=== PATIENT | male | born 1985 | race African-American/Black ===

== ENCOUNTER 2025-03-22 21:14 | Emergency (ER) | payer MEDICAID ==
[~2025-03-22] VITALS: Ht 182.9 cm; Wt 123.6 kg
--- NOTE | 2025-03-22 21:36 | ED.PDOC ---
HPI Comments 40-year-old male came to ER for chest pains. Patient has history of hypertension and dyslipidemia. States for the past month, he has been having intermittent episodes of left-sided neck pains. Few hours ago, patient woke up due sudden onset midsternal chest pains, pressure, intermittent, worsens with neck movements, 8/10 intensity, associated with palpitations and shortness breath. Chief Complaint: Chest pain Time Seen by MD: 21:34 Primary Care Provider: NONE Reviewed Notes: Nurses Notes Allergies: Coded Allergies: NO KNOWN ALLERGIES (Unverified , 11/10/15) Home Meds Active Scripts Cyclobenzaprine Hcl (Cyclobenzaprine Hcl) 10 Mg Tab, 10 MG PO QHSP PRN for 5 Days, #5 TAB Prov:PEREZ JIMÉNEZ MD 03/22/25 Naproxen (Naproxen) 375 Mg Tab, 1 TAB PO BIDPRN PRN for 5 Days, #10 TAB 5 Refills Prov:PEREZ JIMÉNEZ MD 03/22/25 Acetaminophen (Acetaminophen Er) 650 Mg Tab, 650 MG PO TIDPRN PRN for 3 Days, #9 TAB Prov:PEREZ JIMÉNEZ MD 03/22/25 Information Source: Patient Mode of Arrival: Ambulatory Severity: Moderate Timing: Hours Duration: Intermittent Location: Chest (L) Radiation: Neck Quality: Pressure Onset: At Rest Cardiac Risk Factors: Hyperlipidemia, HTN Associated Signs and Symptoms: SOB, Palpitations Review of Systems REVIEW OF SYSTEMS: No fever, no chills, or fatigue HEENT: No sore throat, no earache, no congestion, (+) neck pain. Cardiac: (+) chest pain. (+) palpitations. Lungs: No shortness of breath, no cough. GI: No nausea, no vomiting, no diarrhea, no constipation, no abdominal pain : No dysuria, frequency, or urgency. No hematuria. Musculoskeletal: No joint pain , no joint swelling, no extremity edema . Skin: No rash, no itching. Neuro: No headache, no dizziness, no weakness Vital Signs Vital Signs Date Time Temp Pulse Resp B/P (MAP) Pulse Ox O2 Delivery O2 Flow Rate FiO2 03/23/25 02:49 98.1 81 15 129/82 (98) 98 98.1 03/23/25 01:54 Room Air* 0 21 Physical Exam General: Awake, alert and oriented. No acute distress. Skin: Skin in warm, dry and intact. Appropriate color for ethnicity. Nailbeds pink with no cyanosis. HEENT: The head is normocephalic and atraumatic. Conjunctivae are clear without exudates or hemorrhage. Sclera is non-icteric. EOM are intact. No signs of nystagmus. Eyelids are normal in appearance without swelling or lesions. Oral mucosa is pink and moist Neck: The neck is supple with normal range of motion. No JVD. Left SCM tenderness Cardiac: Heart rate and rhythm are normal. No murmurs, gallops, or rubs are auscultated. No chest wall tenderness Respiratory: No signs of respiratory distress. Lung sounds are clear in all lobes bilaterally without rales, rhonchi, or wheezes. Abdominal: Abdomen is soft, non-tender without distention. Bowel sounds are present and normoactive in all four quadrants. Extremities: Upper and lower extremities are atraumatic in appearance without deformity or edema. Neurological: The patient is awake, alert and oriented to person, place, and time with normal speech. Speech is clear. There is no facial asymmetry. Psychiatric: Appropriate mood and affect. Good judgement and insight. Past Medical History PAST MEDICAL HISTORY: High Lipids, HTN Surgical History (Other): Eye surgery Family History Family History: Reviewed,noncontributory to illness EKG EKG : Pulse Rate (adult): 113 Cardiac Rhythm: ST Comments No STEMI Was a procedure done? Was a procedure done?: No CP Differential Dx Differential Diagnosis: Angina, Anxiety / Panic Attack, Hyperventilation, DC, Other Differential Diagnosis: CHF Differential Diagnosis: Angina, Chest Wall Pain, Costochondritis, Esophageal reflux/spasm, Gastritis, Myocardial Infarction, Pneumothorax, Other X-Ray, Labs, Meds, VS Vital Signs Date Time Temp Pulse Resp B/P (MAP) Pulse Ox O2 Delivery O2 Flow Rate FiO2 03/23/25 02:49 98.1 81 15 129/82 (98) 98 98.1 03/23/25 01:54 81 16 98 Room Air* 0 21 03/23/25 01:04 97.9 71 16 138/84 (102) 97 97.9 03/22/25 21:35 113 03/22/25 21:15 98.6 106 17 158/90 (112) 100 98.6 Lab Test 03/22/25 22:31 03/22/25 21:26 Range/Units Troponin I High Sensitivity 7 6 </=54 ng/L White Blood Count 4.7 4.4-10.8 10^3/uL Red Blood Count 4.67 4.5-5.90 10^6/uL Hemoglobin 14.5 13.5-17.5 g/dL Hematocrit 42.3 41.0-53.0 % Mean Corpuscular Volume 90.6 80.0-100.0 fL Mean Corpuscular Hemoglobin 31.2 28.0-32.0 pg Mean Corpuscular Hemoglobin Concent 34.4 32.0-36.0 g/dL Red Cell Distribution Width 13.2 11.8-14.3 % Platelet Count 214 140-450 10^3/uL Mean Platelet Volume 8.5 6.9-10.8 fL Neutrophils (%) (Auto) 47.1 37.0-80.0 % Lymphocytes (%) (Auto) 43.6 10.0-50.0 % Monocytes (%) (Auto) 5.0 0.0-12.0 % Eosinophils (%) (Auto) 2.3 0.0-7.0 % Basophils (%) (Auto) 2.0 0.0-2.0 % Neutrophils # (Auto) 2.2 1.6-8.6 10 ^3/uL Lymphocytes # (Auto) 2.1 0.4-5.4 10 ^3/uL Monocytes # (Auto) 0.2 0-1.3 10 ^3/uL Eosinophils # (Auto) 0.1 0-0.8 10 ^3/uL Basophils # (Auto) 0.1 0-0.2 10 ^3/uL Nucleated Red Blood Cells 0.2 % Sodium Level 143 136-145 mmol/L Potassium Level 3.3 L 3.5-5.1 mmol/L Chloride Level 105 98-107 mmol/L Carbon Dioxide Level 28 20-31 mmol/L Anion Gap 10 5-15 Blood Urea Nitrogen 12 9-23 mg/dL Creatinine 1.76 H 0.700-1.30 mg/dL Glomerular Filtration Rate Calc 50 >90 mL/min BUN/Creatinine Ratio 6.8 L 10.0-20.0 Serum Glucose 103 74-106 mg/dL Calcium Level 10.2 8.7-10.4 mg/dL Current Medications Medications (Trade) Dose Ordered Sig/Leslee Route Start Time Stop Time Status Last Admin Aspirin 324 mg ONCE ONCE PO 03/22/25 21:30 03/22/25 21:31 DC 03/23/25 02:16 Ketorolac Tromethamine (Toradol Injection) 60 mg ONCE ONCE IM 03/22/25 21:45 03/22/25 21:46 DC 03/23/25 02:16 Potassium Bicarbonate (Klor-Con/Ef) 50 meq ONCE ONCE PO 03/22/25 23:30 03/22/25 23:31 DC 03/23/25 02:18 Carotid Duplex Date: 03/22/2025 09:38 PM Clinical History: neck pain, chest pain, LEft bruit Comparison: None Technique: Duplex Doppler evaluation of the extracranial carotid and vertebral arteries including color Doppler and spectral/pulsed waveform analysis was performed. Findings: RIGHT SIDE: The peak systolic velocities are 70 cm/s in the distal CCA and 57 cm/s in the proximal ICA.The ICA/CCA ratio is less than 1. The external carotid artery is patent with peak systolic velocity of not vis ualized cm/s proximally. There is appropriate antegrade flow in the right vertebral artery. LEFT SIDE: The peak systolic velocities are 87 cm/s in the distal CCA and 68 cm/s in the proximal ICA.. The ICA/CCA ratio is less than 1. The external carotid artery is patent with peak systolic velocity of 105 cm/s proximally. There is appropriate antegrade flow in the left vertebral artery. IMPRESSION: 1. No hemodynamically significant stenosis noted in the right carotid system. 2. No hemodynamically significant stenosis noted in the left carotid system. Time of 1ST Reevaluation: 21:23 Reevaluation 1ST: Unchanged Patient Education/Counseling: Need For Follow Up Family Education/Counseling: No Family Present SEPSIS Sepsis Screen Physician Orders Electrocardigram (03/22/25 21:16) Electrocardigram (03/22/25 22:16) Electrocardigram (03/23/25 00:16) Chest Xray 1 View (03/22/25 21:20) Carotid Duplx W Color Dop (03/22/25 21:29) Vital Signs Date Time Temp Pulse Resp B/P (MAP) Pulse Ox O2 Delivery O2 Flow Rate FiO2 03/23/25 02:49 98.1 81 15 129/82 (98) 98 98.1 03/23/25 01:54 81 16 98 Room Air* 0 21 03/23/25 01:04 97.9 71 16 138/84 (102) 97 97.9 03/22/25 21:35 113 03/22/25 21:15 98.6 106 17 158/90 (112) 100 98.6 Laboratory Tests Test 03/22/25 21:26 White Blood Count 4.7 10^3/uL (4.4-10.8) Medications Medications Dose Ordered Sig/Leslee Route Start Time Stop Time Status Last Admin Dose Admin Aspirin 324 mg ONCE ONCE PO 03/22/25 21:30 03/22/25 21:31 DC 03/23/25 02:16 Ketorolac Tromethamine 60 mg ONCE ONCE IM 03/22/25 21:45 03/22/25 21:46 DC 03/23/25 02:16 Potassium Bicarbonate 50 meq ONCE ONCE PO 03/22/25 23:30 03/22/25 23:31 DC 03/23/25 02:18 Departure 1 Departure Time of Disposition: 23:25 Impression: Primary Impression: Chest pain Additional Impressions: Neck pain Hypokalemia Dehydration Disposition: HOME / SELF CARE / HOMELESS Condition: Stable Additional Instructions: ED DISCHARGE INSTRUCTIONS Instructions: Please read all instructions provided in this packet carefully. Blood work show that you may be dehydrated today. Please drink plenty of fluids at home. Follow up with the primary care provider to have your kidney function tests retested. Although you have been discharged from the Emergency Department, this does not mean that you have a "clean bill of health". No definitive diagnosis for your symptoms has been made today. It is possible that you are in the process of developing a serious illness. This is why you must return to the ED without fail if any new or worsening symptoms (especially if your symptoms include chest pain , trouble breathing, abdominal pain, fever, headache, confusion, trouble seeing, or trouble walking) It is also very important that you see a primary care doctor within the next 3-5 days to follow up. If you are unable to get an appointment, return to the ED for re-evaluation. CHEST PAIN EDUCATION There are many things that can cause chest pain. Some are not serious and will g et better on their own in a few days. But some kinds of chest pain need more testing and treatment. Your doctor may have recommended a follow-up visit in the next few days. If you are not getting better, you may need more tests or treatment. Even though your doctor has released you, you still need to watch for any problems. The doctor carefully checked you, but sometimes problems can develop later. If you have new symptoms or if your symptoms do not get better, get medical care right away. If you have worse or different chest pain or pressure that lasts more than 5 minutes or you passed out (lost consciousness), call 911 or seek other emergency help right away. A medical visit is only one step in your treatment. Even if you feel better, you still need to do what your doctor recommends, such as going to all suggested follow-up appointments and taking medicines exactly as directed. This will help you recover and help prevent future problems. How can you care for yourself at home? Rest until you feel better. Take your medicine exactly as prescribed. Call your doctor if you think you are having a problem with your medicine. Do not drive after taking a prescription pain medicine. When should you call for help? Call 911 if: You passed out (lost consciousness). You have severe difficulty breathing. You have symptoms of a heart attack. These may include: Chest pain or pressure, or a strange feeling in your chest. Sweating. Shortness of breath. Nausea or vomiting. Pain, pressure, or a strange feeling in your back, neck, jaw, or upper belly or in one or both shoulders or arms. Lightheadedness or sudden weakness. A fast or irregular heartbeat. After you call 911, the icer machine operator may tell you to chew 1 adult-strength or 2 to 4 low-dose aspirin. Wait for an ambulance. Do not try to drive yourself. Call your doctor now or seek immediate medical care if: You have any trouble breathing. You have new or different chest pain. You are dizzy or lightheaded, or you feel like you may faint. Watch closely for changes in your health, and be sure to contact your doctor if you do not get better as expected. Current as of: May 02, 2024 Author: DAR Alvarado Staff? Preventing Dehydration Dehydration is when the body dries out because of drinking too little fluid, losing too much fluid, or both. Normal fluid loss happens with breathing, urination, and sweating. Too much fluid can be lost through vomiting, diarrhea, or excessive sweating. Dehydration can occur quickly in older adults and may lead to serious health conditions. You may be dehydrated if you experience: dark colored urine frequent urination and only pass a small amount dry mouth or coated tongue constipation or small and hard stools dry skin frequent urinary tract infection headache confusion dizziness or lightheadedness after standing up fast heart rate dry eyes You may not have all of these symptoms at the same time, but all may be caused by not drinking enough fluids. What can I do to prevent dehydration? The best way to replace fluids is to drink enough daily. Many older people do not feel thirsty and are not aware of the need to drink. Men 13 cups/day (3.0L) Women 9 cups/day (2.7L) What should I drink? At least half of what you drink should be water. Good choices of fluid are: Water or calorie-free flavored water Fruit or vegetable juices Milk Decaffeinated or herbal teas Low sodium broth or soups Poor choices are: Canned soups, which can be a hidden source of salt Soft drinks and sports drinks high in sugar Caffeinated drinks such as coffee, tea, and hot chocolate Alcohol *Caffeinated and alcoholic drinks may cause fluid loss. *Alcoholic drinks should be limited to two drinks/day for men and one for women. 1 Drink = 12oz beer, 6oz wine, or 1oz liquor Simple ways to drink more: Use large, easy to hold cups Leave a glass of fluid at your bedside or sitting area Choose a variety of fluids based on what you like Drink fluids during and between meals Remind older adults to drink enough fluid daily e-Prescriptions Cyclobenzaprine Hcl (Cyclobenzaprine Hcl) 10 Mg Tab 10 MG PO QHSP PRN for 5 Days, #5 TAB Prov: PEREZ JIMÉNEZ MD 03/22/25 Naproxen (Naproxen) 375 Mg Tab 1 TAB PO BIDPRN PRN for 5 Days, #10 TAB 5 Refills Prov: PEREZ JIMÉNEZ MD 03/22/25 Acetaminophen (Acetaminophen Er) 650 Mg Tab 650 MG PO TIDPRN PRN for 3 Days, #9 TAB Prov: PEREZ JIMÉNEZ MD 03/22/25 Comments 40-year-old male with left-sided neck pain and chest pain. EKG negative for signs of ischemia. High sensitivity troponin negative. CXR shows no acute pr ocess. Ultrasound negative for carotid stenosis/aneurysm. Presentation not suggestive of acute coronary syndrome, pulmonary embolism or aortic dissection. Patient improved at time of discharge. No hypoxia, respiratory distress or dyspnea at discharge. Patient able to ambulate without difficulty. Patient felt stable for discharge home. Patient advised of importance of hydration at home Patient well-appearing, nontoxic. Advised prompt follow-up with PCP, return to the ED with any new, worsening or concerning symptoms. Extensive evaluation was performed in attempt to identify or rule out: (See differential diagnosis section) The following tests were ordered, and results were reviewed by me and discussed with patient: (See diagnostic results section) The following test were independently interpreted by me: EKG I reviewed and agreed with the following test results read by other providers: Chest x-ray I reviewed the following notes from the pt's past medical encounters: N/A Additional information was gathered from interviewing the following independent historians: N/A Discussion of management or test interpretation with external physician/other qualified health certified social workers in health care: N/A Decision regarding hospitalization or escalation of hospital level of care: Risks and benefits of admission for further treatment of patient's condition was considered however due to patient's stable condition patient will be discharged to follow up closely or return to care for worsening of condition or inability to follow up. Critical Care Note Critical Care Time?: No Stability Stability form required: No Heart Score Heart Score: Heart Score Response (Comments) Value History Moderate Suspicious 1 EKG Repolarization Disturb 1 Age <45 0 Risk Factors 1 or 2 risk factors 1 Troponin Normal limit 0 Total 3 I personally scribed for PEREZ JIMÉNEZ MD ([employer]) on 03/22/25 at 21:35. Electronically submitted by Tashi Goodman ([employer]). I personally scribed for PEREZ JIMÉNEZ MD ([employer]) on 03/22/25 at 22:30. Electronically submitted by Tashi Goodman ([employer]). PEREZ JIMÉNEZ MD Mar 22, 2025 21:35
[2025-03-22 21:40] LABS: Basophils # (auto) 0.1 10 ^3/uL (0-0.2); Eosinophils # (auto) 0.1 10 ^3/uL (0-0.8); Eosinophils % (auto) 2.3 % (0.0-7.0); Hematocrit 42.3 % (41.0-53.0); Hemoglobin 14.5 g/dL (13.5-17.5); Lymphocytes # (auto) 2.1 10 ^3/uL (0.4-5.4); Lymphocytes % (auto) 43.6 % (10.0-50.0); Mean Corpuscular Hemoglobin 31.2 pg (28.0-32.0); Mean Corpuscular Hgb Conc. 34.4 g/dL (32.0-36.0); Mean Corpuscular Volume 90.6 fL (80.0-100.0); Monocytes # (auto) 0.2 10 ^3/uL (0-1.3); Neutrophils # (auto) 2.2 10 ^3/uL (1.6-8.6); Neutrophils % (auto) 47.1 % (37.0-80.0); Nucleated Red Blood Cells % 0.2 %; Platelet Count (auto) 214 10^3/uL (140-450); Red Blood Cells 4.67 10^6/uL (4.5-5.90); Red Cell Distribution Width 13.2 % (11.8-14.3); White Blood Cell 4.7 10^3/uL (4.4-10.8)
[2025-03-22 21:45] LABS: Chloride 105 mmol/L (98-107)
[2025-03-22 21:46] LABS: Calcium 10.2 mg/dL (8.7-10.4); Carbon Dioxide 28 mmol/L (20-31)
[2025-03-22 21:51] LABS: BUN/Creatinine Ratio 6.8 (10.0-20.0); Blood Urea Nitrogen 12 mg/dL (9-23); Glucose 103 mg/dL (74-106); Potassium 3.3 mmol/L (3.5-5.1)
[2025-03-22 22:00] LABS: Anion Gap 10 (5-15); Sodium 143 mmol/L (136-145)
--- NOTE | 2025-03-22 22:17 | DVH ---
Carotid Duplex Date: 03/22/2025 09:38 PM Clinical History: neck pain, chest pain, LEft bruit Comparison: None Technique: Duplex Doppler evaluation of the extracranial carotid and vertebral arteries including col or Doppler and spectral/pulsed waveform analysis was performed. Findings: RIGHT SIDE: The peak systolic velocities are 70 cm/s in the distal CCA and 57 cm/s in the proximal ICA.The ICA/CC A ratio is less than 1. The external carotid artery is patent with peak systolic velocity of not visualized cm/s proximally. There is appropriate antegrade flow in the right vertebral artery. LEFT SIDE: The peak systolic velocities are 87 cm/s in the distal CCA and 68 cm/s in the proximal ICA.. The ICA/ CCA ratio is less than 1. The external carotid artery is patent with peak systolic velocity of 105 cm/s proximally. There is appropriate antegrade flow in the left vertebral artery. IMPRESSION: 1. No hemodynamically significant stenosis noted in the right carotid system. 2. No hemodynamically significant stenosis noted in the left carotid system. 3. Reference: Radiology 2003; 229:340-346 HS:Y
--- NOTE | 2025-03-22 22:39 | DVH ---
CHEST RADIOGRAPH Indication: Chest pain Technique: Single frontal view of the chest was obtained COMPARISON: None FINDINGS: Lines and Tubes: None Lungs: Clear Pleura: No effusion. No pneumothorax. Cardiomediastinal contours: Unremarkable Bones: Unremarkable IMPRESSION: 1. No acute disease.
[2025-03-22] MEDS ORDERED: NAPR-957 PO (23:27)
[2025-03-22] MEDS ORDERED: CYCL-839 PO (23:27)
[2025-03-22] MEDS ORDERED: ACET650T12 PO (23:27)
[2025-03-23 01:54] VITALS: PULSE 81; RESP 16; O2SAT 98
[2025-03-23] MEDS: KETOROLAC TROMETH 30 MG/ML 1ML VIAL IM ONE (02:16)
[2025-03-23] MEDS: SODIUM CHLORIDE 0.9% 1,000 ML IV ONE (02:16)
[2025-03-23] MEDS: ASPirin 81 mg TAB PO ONE (02:16)
[2025-03-23] MEDS: POTASSIUM EFFERVESENT TAB 25 MEQ PO ONE (02:18)
[2025-03-23 02:49] VITALS: BP 129/82; PULSE 81; RESP 15; TEMP 98.1; O2SAT 98
--- NOTE | 2025-03-25 12:27 | ECG ---
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
--- NOTE | 2025-03-26 14:42 | ECG ---
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
== END 2025-03-23 02:48 | disposition home or self-care (01) ==
LOC: ER 21:14
DX: E87.6 Hypokalemia (principal); R07.89 Other chest pain; M54.2 Cervicalgia; E86.0 Dehydration; E78.5 Hyperlipidemia, unspecified; I10 Essential (primary) hypertension; Z98.890 Other specified postprocedural states; Z79.899 Other long term (current) drug therapy
CPT/HCPCS: 36415; 71045; 80048; 84484; 85025; 93005; 93886; 96372; 99285; J1885

== ENCOUNTER 2025-05-04 11:19 | Emergency (ER) | payer MEDICAID ==
[~2025-05-04] VITALS: Ht 182.9 cm; Wt 120.6 kg
[~2025-05-04 11:19] MED LIST: ACET650T12 PO; CYCL-839 PO; NAPR-957 PO
--- NOTE | 2025-05-04 11:28 | ECG ---
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
--- NOTE | 2025-05-04 11:50 | ED.PDOC ---
History of Present Illness HPI Comments 40 y/o M presents with c/c left sided neck pain, that radiates to his left chest wall and left arm, with associated left finger numbness. Denies any further acute symptoms. No cardiac history. Chief Complaint: Upper Extremity Time Seen by MD: 11:20 Primary Care Provider: NONE Reviewed Notes: Nurses Notes, Medications, Allergies Allergies: Coded Allergies: NO KNOWN ALLERGIES (Unverified , 11/10/15) Home Meds Active Scripts Cyclobenzaprine Hcl (Cyclobenzaprine Hcl) 10 Mg Tab, 10 MG PO QHSP PRN for 5 Days, #5 TAB Prov:PEREZ JIMÉNEZ MD 03/22/25 Naproxen (Naproxen) 375 Mg Tab, 1 TAB PO BIDPRN PRN for 5 Days, #10 TAB 5 Refills Prov:PEREZ JIMÉNEZ MD 03/22/25 Acetaminophen (Acetaminophen Er) 650 Mg Tab, 650 MG PO TIDPRN PRN for 3 Days, #9 TAB Prov:PEREZ JIMÉNEZ MD 03/22/25 Information Source: Patient Mode of Arrival: Ambulatory Severity: Moderate Timing: Hours Duration: Since onset Prehospital treatment: None Past Medical History PAST MEDICAL HISTORY: High Lipids, HTN Family History Family History: Reviewed,noncontributory to illness Social History Smoker: Non-Smoker Alcohol: Denies ETOH Use Drugs: Denies Drug Use Lives In: Home All Other Systems: Reviewed and Negative (As per HPI) Physical Exam General Appearance: Mild Distress, Normal HEENT: Normal ENT Inspection, Pharynx Normal, TMs Normal Neck: Limited Range of Motion, Normal, Normal Inspection, Tender Lateral Respiratory: Chest Non-Tender, Lungs Clear, No Accessory Muscle Use, No Respiratory Distress, Normal Breath Sounds Cardiovascular: No Edema, No JVD, No Murmur, No Gallop, Normal Peripheral Pulses, Regular Rate/Rhythm Breast Exam: Deferred Gastrointestinal: No Organomegaly, Non Tender, No Pulsatile Mass, Normal Bowel Sounds, Soft Genitalia: Deferred Pelvic: Deferred Rectal: Deferred Extremities: No calf tenderness, Normal capillary refill, Normal inspection, N ormal range of motion, Non-tender, No pedal edema, Other (Left arm is tingling up to the fingers which are feel numb) Neurologic: Alert, drop man II-XII nml as Tested, No Motor Deficits, Normal Affect, Normal Mood, No Sensory Deficits Cerebellar Function: Normal Reflexes: Normal Skin: Dry, Normal Color, Warm Peripheral Pulses: 1+ carotid (R), 1+ carotid (L) Lymphatic: No Adenopathy Was a procedure done? Was a procedure done?: No EKG EKG : Pulse Rate (adult): 86 [place]: Normal Cardiac Rhythm: NSR Block: None Hypertrophy: None ST: Normal Differential Dx Considerations may include: Cervical radiculopathy sprain, musculoskeletal pain, dislocation, CO, angina, PE, among others X-Ray, Labs, Meds, VS Vital Signs Date Time Temp Pulse Resp B/P (MAP) Pulse Ox O2 Delivery O2 Flow Rate FiO2 05/04/25 11:50 86 05/04/25 11:48 74 18 96 Room Air 05/04/25 11:48 97.6 74 16 167/74 (105) 96 97.6 05/04/25 11:27 86 05/04/25 11:20 97.5 101 18 148/95 98 97.5 Current Medications Medications (Trade) Dose Ordered Sig/Leslee Route Start Time Stop Time Status Last Admin Ketorolac Tromethamine (Toradol Injection) 60 mg ONCE ONCE IM 05/04/25 11:45 05/04/25 11:46 DC 05/04/25 12:06 X-Ray, Labs, Meds, VS Comment Course in the emergency department eventful patient came in complaining of left arm tingling and neck pain The EKG shows normal nonspecific ST-T changes inferior and lateral leads The CT of the C-spine is normal Patient will be discharged home to follow up with his PCP Time of 1ST Reevaluation: 11:50 Reevaluation 1ST: Unchanged Patient Education/Counseling: Diagnosis, Treatment, Need For Follow Up Family Education/Counseling: No Family Present SEPSIS Sepsis Screen Date sepsis recognized/suspect: May 04, 2025 Time Sepsis recognized/suspect: 1119 Recent Procedure: No On Antibiotic Therapy: No Respiratory Rate >20: No Heart Rate >90: Yes Temp<36 C (96.8 F) or >38.3 C: No SBP <90 or MAP <65 mmHG: No New Acute Mental Status Change: No Is the patient on CPAP, BIPAP,: No Physician Orders Cervical Without Contrast (05/04/25 11:39) Vital Signs Date Time Temp Pulse Resp B/P (MAP) Pulse Ox O2 Delivery O2 Flow Rate FiO2 05/04/25 11:50 86 05/04/25 11:48 74 18 96 Room Air 05/04/25 11:48 97.6 74 16 167/74 (105) 96 97.6 05/04/25 11:27 86 05/04/25 11:20 97.5 101 18 148/95 98 97.5 Medications Medications Dose Ordered Sig/Leslee Route Start Time Stop Time Status Last Admin Dose Admin Ketorolac Tromethamine 60 mg ONCE ONCE IM 05/04/25 11:45 05/04/25 11:46 DC 05/04/25 12:06 Departure 1 Departure Time of Disposition: 14:01 Impression: Primary Impression: Left face and left arm tingling Additional Impression: Abnormal EKG Ruled Out: Radiculopathy Disposition: 01 HOME / SELF CARE / HOMELESS Condition: Fair Additional Instructions: Follow up with your PCP and also Cardiology e-Prescriptions Naproxen (Naproxen) 375 Mg Tab 375 MG PO TID for 10 Days, #30 TAB Prov: NAVYA ROSENBERG MD 05/04/25 Discharged With: Self Critical Care Note Critical Care Time?: No Stability Stability form required: No Heart Score Heart Score: Heart Score Response (Comments) Value History N/A 0 EKG Repolarization Disturb 1 Age <45 0 Risk Factors 1 or 2 risk factors 1 Troponin N/A 0 Total 2 I personally scribed for NAVYA ROSENBERG MD ([email or web address]) on 05/04/25 at 11:50. Electronically submitted by Rickey Whiting ([email or web address]). NAVYA ROSENBERG MD May 04, 2025 11:50
[2025-05-04] MEDS: KETOROLAC TROMETH 60MG/2ML VIAL IM ONE (12:06)
--- NOTE | 2025-05-04 12:46 | DVH ---
EXAM: CT CERVICAL WITHOUT CONTRAST INDICATION: Left arm radiculopathy with a stiff neck EXAM DATE: 05/04/2025 11:42 AM COMPARISON: US CAROTID DUPLX W COLOR DOP on DOS: 03/22/25 TECHNIQUE: Multiple axial CT images of the cervical spine were obtained using bone algorithm. Sagitta l and coronal reformatting was done. Bone and soft tissue windows were reviewed. Radiation Dose Information: CT Dose: CTDI volume is 27.07 mGy. Dose-length product is 1.78 mGy*cm FINDINGS: The cervical alignment is intact. Curvature is maintained. No acute cervical spine fracture is identi fied. The vertebral body heights are intact. No suspicious osseous lesions are identified. No significant degenerative changes are identified. No significant spinal or neural foraminal stenosi s. There is no prevertebral soft tissue swelling. Lung apices are clear. IMPRESSION: 1. No evidence of acute cervical spine fracture or traumatic malalignment. All CT scans at this medical facility are performed using dose modulation techniques as appropriate t o a performed exam including the following: Automated exposure control was utilized; adjustment of th e MA and/or KV according to patient size; and use of iterative reconstruction technique.
[2025-05-04] MEDS ORDERED: NAPR-957 PO (14:04)
[2025-05-04 14:19] VITALS: BP 141/87; PULSE 79; RESP 16; TEMP 98.3; O2SAT 96
== END 2025-05-04 14:30 | disposition home or self-care (01) ==
LOC: ER 11:22
DX: R20.2 Paresthesia of skin (principal); R94.31 Abnormal electrocardiogram [ECG] [EKG]; I10 Essential (primary) hypertension; E78.5 Hyperlipidemia, unspecified; Z79.899 Other long term (current) drug therapy
CPT/HCPCS: 72125; 93005; 96372; 99285; J1885